=== PATIENT | female | born 1965 | race Caucasian/White ===

== ENCOUNTER 2024-11-12 09:00 | Day surgery (SDC) | payer OTHER ==
[2024-11-12] MEDS ORDERED: CETI5 PO (15:18)
[2024-11-12] MEDS ORDERED: Flonase 0.05% N16 GM (15:18)
[2024-11-12] MEDS ORDERED: GUAI600T33 PO (15:20)
== END 2024-11-12 23:00 | disposition home or self-care (01) ==
LOC: MOI US 09:00
DX: C50.412 Malignant neoplasm of upper-outer quadrant of left female breast (principal); E78.5 Hyperlipidemia, unspecified; F33.2 Major depressive disorder, recurrent severe without psychotic features; Z17.0 Estrogen receptor positive status [ER+]; Z17.32 Human epidermal growth factor receptor 2 negative status; Z72.0 Tobacco use
CPT/HCPCS: 19285; 77065; A4648; G0279

== ENCOUNTER 2024-11-14 11:41 | Day surgery (SDC) | payer OTHER ==
[~2024-11-14] VITALS: Ht 162.6 cm; Wt 96.8 kg
[2024-11-14] VITALS (11 sets, daily range): BP systolic 116–147; BP diastolic 62–93
[~2024-11-14 11:41] MED LIST: CETI5 PO; Flonase 0.05% N16 GM; GUAI600T33 PO
[2024-11-14] MEDS ORDERED: Bupivacaine 0.5% HCl 5 MG/ML 30MLVIAL ONE (12:16)
[2024-11-14] MEDS ORDERED: CeFAZolin Sodium 2,000 MG in NS 100 ML IV SCH (12:35)
[2024-11-14] MEDS ORDERED: Lactated Ringer's 1,000 ML IV SCH (12:35)
[2024-11-14] MEDS ORDERED: FentaNYL Citrate 50 MCG/ML 2 ML Injection ONE ×2 (14:11→16:42)
[2024-11-14] MEDS ORDERED: Ondansetron HCl 2 MG / ML 2ML Vial ONE (14:11)
[2024-11-14] MEDS ORDERED: propofoL 20 ML IV ONE (14:11)
[2024-11-14] MEDS ORDERED: Dexamethasone Sod Phos 10 MG/ML 1ML VIAL ONE (14:11)
[2024-11-14] MEDS ORDERED: Midazolam HCl 1MG / ML 2ML Vial ONE (14:11)
[2024-11-14] MEDS ORDERED: Rocuronium Bromide 10 MG/ML 5ML Injection IV ONE (14:11)
[2024-11-14] MEDS ORDERED: HYDROmorphone HCl 0.5 MG/0.5 ML SYR ONE (14:28)
[2024-11-14] MEDS ORDERED: Methylene Blue 1% 100 MG/10 ML VIAL ONE (14:34)
[2024-11-14] MEDS ORDERED: FentaNYL Citrate 50 MCG/ML 2 ML Injection IV PRN ×2 (14:45→14:50)
[2024-11-14] MEDS ORDERED: Ondansetron HCl 2 MG / ML 2ML Vial IV PRN (14:50)
[2024-11-14] MEDS ORDERED: Prochlorperazine Edisylate 10 mg Vial IV PRN (14:50)
[2024-11-14] MEDS ORDERED: Albuterol 2.5 MG/3 ML VIAL INH PRN (14:50)
[2024-11-14] MEDS ORDERED: ePHEDrine Sulfate 50 MG/ML 1ML Injection IV PRN (14:50)
[2024-11-14] MEDS ORDERED: HYDROmorphone HCl 0.5 MG/0.5 ML SYR IV PRN ×2 (14:50→14:55)
[2024-11-14] MEDS ORDERED: ePHEDrine Sulfate 50 MG/ML 1ML Injection ONE (15:10)
[2024-11-14] MEDS ORDERED: Sugammadex Sodium 200 MG/2ML SDV (100 MG/ML) ONE (15:46)
[2024-11-14] MEDS ORDERED: Ketorolac Tromethamine 30mg Vial ONE (15:47)
[2024-11-14] MEDS ORDERED: HYDROcodone 5-APAP 325 TAB PO PRN (16:35)
--- NOTE | 2024-11-14 17:45 | NUR ---
ANESTHESIOLOGIST NOTFIED FOR MULTIPLE PVC'S ON 3-LEAD. PT ASYMPTOMATIC, STS PREVIOUS HISTORY OF PVC. STATES OKAY TO DISCHARGE HOME.
--- NOTE | 2024-11-14 17:46 | NUR ---
Discharge instructions reviewed with patient. Patient verbalizes understanding. Copy given to patient to take home. Discharged via wheelchair to private car for ride home. Breast binder in place.
== END 2024-11-14 17:40 | disposition home or self-care (01) ==
LOC: ORSCMMR 11:41 → NM 11:41 → ORSCMMR 11:43 → NM 17:40
PROVIDERS: Surgery
PROC: 0HBU0ZZ Excision of Left Breast, Open Approach (ICD-10-PCS; principal; 2024-11-14 14:00)
PROC: 07B60ZX Excision of Left Axillary Lymphatic, Open Approach, Diagnostic (ICD-10-PCS; principal; 2024-11-14 14:00)
DX: C50.412 Malignant neoplasm of upper-outer quadrant of left female breast (principal); D36.0 Benign neoplasm of lymph nodes; Z17.0 Estrogen receptor positive status [ER+]; Z17.21 Progesterone receptor positive status; Z17.32 Human epidermal growth factor receptor 2 negative status; F41.9 Anxiety disorder, unspecified; F17.220 Nicotine dependence, chewing tobacco, uncomplicated; E78.5 Hyperlipidemia, unspecified; F32.9 Major depressive disorder, single episode, unspecified; Z79.899 Other long term (current) drug therapy
CPT/HCPCS: 38792; 88307; 88342; A9270; A9520; J0690; J1100; J1171; J1885; J2250; J2405; J2704; J3010; J7120; Q9968